=== PATIENT | male | born 1975 | race Two or more races ===

== ENCOUNTER 2016-12-02 23:26 | Emergency (ER) | payer SELFPAY ==
[2016-12-02] MEDS ORDERED: TETRACYCLINE H500 M1 PO (23:56)
[2016-12-02] MEDS ORDERED: ZITHROMAX250 M1 PO (23:56)
[2016-12-02] MEDS ORDERED: PREDNISONE20 M1 PO (23:57)
[2016-12-03 00:49] LABS: BASO % 0.5 % (0-2); BASO ABSOLUTE COUNT 0.1 tho/cmm (0.0-0.2); EOS % 0.6 % (0-7); EOSINOPHIL ABSOLUTE COUNT 0.1 tho/cmm (0.0-0.7); HCT-HEMATOCRIT 40.4 % (36.0-53.5); IMMATURE GRANULOCYTES ABSOLUTE 0.08 tho/cmm (0-0.03); IMMATURE GRANULOCYTES PERCENT 0.6 % (0-0.3); LYMPH % 14.3 % (20-45); LYMPH ABSOLUTE COUNT 1.8 tho/cmm (0.8-4.5); MCH (MEAN CORPUSCULAR HGB) 29.9 pg (28.0-32.0); MCHC MEAN CORPUSCULAR HGB CONC 34.7 % (32.0-36.0); MCV (MEAN CELL VOLUME) 86.1 fl (82.0-96.0); MEAN PLATELET VOLUME 10.7 cmc (9.4-12.4); MONO % 9.3 % (0-12); MONOCYTE ABSOLUTE COUNT 1.2 tho/cmm (0.0-1.2); NEUTROPHIL ABSOLUTE COUNT 9.5 tho/cmm (1.6-8.0); NEUTROPHIL-AUTOMATED 9.5 tho/cmm (1.6-8.0); NEUTROPHILS % 74.7 % (40-80); PLATELET COUNT 267 tho/cmm (150-450); RED BLOOD COUNT 4.69 mil/cmm (4.40-5.70); RED CELL DISTRIBUTION WIDTH 12.9 % (12.4-16.4); WHITE BLOOD COUNT 12.7 tho/cmm (4.0-10.0)
[2016-12-03 00:58] LABS: URINE APPEARANCE HAZY; URINE BILIRUBIN NEGATIVE (NEG); URINE COLOR YELLOW; URINE GLUCOSE (UA) NEGATIVE (NEG); URINE LEUKOCYTE ESTERASE POSITIVE (NEG); URINE PROTEIN POSITIVE (NEG)
[2016-12-03 00:59] LABS: URINE BLOOD LARGE (NEG); URINE KETONE NEGATIVE (NEG); URINE NITRITE NEGATIVE (NEG)
[2016-12-03 01:01] LABS: ANION GAP 13 mmol/L (0-20); BLOOD UREA NITROGEN 13 mg/dl (6-24); CALCIUM 8.6 mg/dl (8.5-10.5); CARBON DIOXIDE-VENOUS 25 mmol/L (22-32); CHLORIDE 106 mmol/l (96-110); CREATININE 0.86 mg/dl (0.60-1.30); GLUCOSE 119 mg/dL (70-110); POTASSIUM 3.7 mmol/L (3.7-5.1); SODIUM 140 mmol/L (135-145); eGFR VALUE FOR BLACK >90 mL/Min
[2016-12-03 01:05] LABS: URINE EPITHELIAL CELLS 0 /[HPF] (0-10); URINE RBC 15-20 /[HPF] (0-5)
== END 2016-12-03 04:00 ==
LOC: EDMED 23:26
PROVIDERS: Emergency Medicine
DX: R10.84 Generalized abdominal pain (principal); K05.10 Chronic gingivitis, plaque induced; R21 Rash and other nonspecific skin eruption
CPT/HCPCS: J1885; J7030